=== PATIENT | male | born 1940 | race Caucasian/White ===

== ENCOUNTER → 2016-07-08 | Outpatient (CLI) | payer MEDICARE, OTHER ==
[~2016-07-08] MED LIST: ACID CONTROLLER20 MG PO; ACTOS30 MG PO; ASPIR 8181 MG PO; ELIQUIS5 MG PO; FINASTERIDE5 MG PO; FLOMAX0.4 MG PO; GABAPENTIN300 MG PO; GLUCOPHAGE1000 MG PO; INVOKANA300 MG PO; LIPITOR TAB 1010 MG PO; MOBIC15 MG PO; MULTAQ400 MG PO; NEURONTIN 300300 MG PO; OMEPRAZOLE40 MG PO; SPIRIVA HANDIH18 MCG INH; VITAMIN B-1250 MC1 PO; ZESTRIL 40 MG T40 MG PO; ZOFRAN8 MG PO
== END ==
LOC: OPSV 07:30 → CT 09:30
DX: C34.11 Malignant neoplasm of upper lobe, right bronchus or lung (principal); C77.1 Secondary and unspecified malignant neoplasm of intrathoracic lymph nodes; C78.2 Secondary malignant neoplasm of pleura; E86.0 Dehydration; R10.9 Unspecified abdominal pain; Z03.89 Encounter for observation for other suspected diseases and conditions ruled out; K76.89 Other specified diseases of liver; R06.02 Shortness of breath; R05 Cough; E10.69 Type 1 diabetes mellitus with other specified complication; Z01.89 Encounter for other specified special examinations; R53.1 Weakness; R52 Pain, unspecified; R29.898 Other symptoms and signs involving the musculoskeletal system; R26.89 Other abnormalities of gait and mobility
CPT/HCPCS: 72130; 72133; 76857; 96360; 96361; J1642; J7030; J7050; Q9962